=== PATIENT | male | born 1940 | race Caucasian/White ===

== ENCOUNTER → 2019-01-09 | Outpatient (CLI) | payer OTHER ==
--- NOTE | 2019-01-09 14:37 | RADIOLOGY REPORT (SQ) ---
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 The route of agent administration: Intravenous. ADDITIONAL DRUGS AND DOSES: None. TECHNIQUE: Routine delayed images at 4 hours post radionuclide injection acquired of the bony skelet on including anterior and posterior whole-body projections and additional focused images as needed. LIMITATIONS: None. FINDINGS: BONES: There is mild degenerative uptake in the shoulders and knees and lumbar spine. The re is focal uptake in the right 5th rib anteriorly. No other significant skeletal uptake is seen. KIDNEYS: Symmetric excretion without obstruction. OTHER: No other significant finding. IMPRESSION: There is degenerative uptake. There is focal uptake in the right 5th rib that could con ceivably represent a isolated metastasis, although the overall appearance of the scan does not sugges t metastatic disease to bone. COMMENT: Quality measure 147: No available prior imaging studies for comparison TECHNICAL DOCUMENTATION: JOB ID: [id number] [employer]- All Rights Reserved Reading location - IP/workstation name: [email or web address]
== END ==
LOC: RAD 08:30
PROVIDERS: ATTEND Internal Medicine
DX: C61 Malignant neoplasm of prostate (principal); M15.8 Other polyosteoarthritis
CPT/HCPCS: 78306; A9561; Q9969